=== PATIENT | male | born 1980 | race Hispanic/Latino ===

== ENCOUNTER 2017-02-17 11:56 | Emergency (ER) | payer SELFPAY | END 2017-02-17 12:53 | disposition home or self-care (01) | LOC: ERS 11:56 | DX: H60.92 Unspecified otitis externa, left ear (principal); I10 Essential (primary) hypertension; F17.210 Nicotine dependence, cigarettes, uncomplicated | CPT/HCPCS: 36416; 99283 ==

== ENCOUNTER 2019-09-03 21:41 | Emergency (ER) | payer SELFPAY ==
[2019-09-03] MEDS ORDERED: Lidocaine Viscous Sol 2% 15 ml UD Cup ONE (22:36)
[2019-09-03] MEDS ORDERED: Mag-Al 1200 mg/1200 mg/30 ML UDCUP ONE (22:36)
[2019-09-03] MEDS ORDERED: Ondansetron ODT 4 MG TAB ONE (22:45)
[2019-09-03 23:24] LABS: #Eosinphils 0.1 thou/uL (0.0-0.7); #Lymphocytes 3.4 thou/uL (1.20-3.40); #Monocytes 0.6 thou/uL (0.11-0.59); #Neutrophils 7.1 thou/uL (1.40-6.50); %Basophils 0.3 % (0.0-1.0); %Eosinophils 0.8 % (0.0-10.0); %Lymphocytes 30.5 % (21.0-51.0); %Monocytes 5.6 % (0.0-10.0); %Neutrophils 62.7 % (42.0-75.0); Hemoglobin 16.3 g/dL (14.0-18.0); Mean Corpuscular HGB CONC 33.8 g/dL (32.0-36.0); Mean Corpuscular Hemoglobin 31.5 pg (27.0-31.0); Mean Corpuscular Volume 93.1 fL (78.0-98.0); Mean Platelet Volume 10.3 fL (7.4-10.4); Platelet Count 197 thou/uL (130-400); RBC Distribution Width 12.3 % (11.5-14.5); Red Blood Cell (RBC) Count 5.17 mill/uL (4.70-6.10); White Blood Cell (WBC) Count 11.3 thou/uL (4.8-10.8)
[2019-09-03 23:25] LABS: ALT (SGPT) 131 U/L (8-55); AST (SGOT) 100 U/L (5-34); Albumin 4.2 g/dL (3.5-5.0); Alkaline Phosphatase 121 U/L (40-110); Anion Gap 20 mmol/L (10-20); BUN (Urea Nitrogen) 8 mg/dL (8.9-20.6); Bilirubin, Total 0.4 mg/dL (0.2-1.2); CK (CPK) 60 U/L (30-200); Calc. Creatinine Clearance 0 mL/min (70-130); Calcium 9.8 mg/dL (7.8-10.44); Carbon Dioxide 17 mmol/L (22-29); Chloride 106 mmol/L (98-107); Estimated GFR-MDRD Greater than 90; Glucose 207 mg/dL (70-105); Lipase 30 U/L (8-78); Potassium 3.9 mmol/L (3.5-5.1); Protein, Total 8.2 g/dL (6.0-8.3); Sodium 139 mmol/L (136-145)
--- NOTE | 2019-09-03 23:33 | RAD ---
CHEST ONE VIEW: 09/03/19 HISTORY: Diabetes and nausea. COMPARISON: None. FINDINGS: The lungs are clear. No pneumothorax or effusion. Cardiac silhouette and mediastinal contours are w ithin normal limits for the hypoinflated state. No acute osseous abnormality. IMPRESSION: Lung hypoinflation with bibasilar atelectasis. POS: HOME
[2019-09-04] MEDS ORDERED: cloNIDine 0.1 MG TAB ONE (00:05)
--- NOTE | 2019-09-04 08:06 | ULT ---
PRELIMINARY REPORT/[facility]/EMERGENCY AFTER HOURS PROCEDURE: PROCEDURE: Ultrasound Abdomen Limited. HISTORY: Abdomen pain. TECHNIQUE: Grayscale and color flow evaluation was performed of the RIGHT upper quadrant with image d ocumentation. COMPARISONS: None . TECHNICAL QUALITY: Satisfactory . FINDINGS: Liver: Normal echogenicity with no masses or intrahepatic biliary ductal dilatation . Liver not well visualized. Gallbladder: No evidence of gallstones or sludge with normal gallbladder wall at 2 mm . Limited visu alization of the gallbladder. Negative sonographic Dunn sign. Common bile duct: Normal size at 4 mm . Pancreas: Normal echogenicity with no masses . Not well visualized. RIGHT kidney: Normal echogenicity with no masses, cysts, calculus, or hydronephrosis . RIGHT kidney measures 12.3 cm in length. Ascites: None . Other: None . IMPRESSION: No significant abnormality identified. Limited visualization as described above. ELECTRONICALLY SIGNED BY: Souleymane Palafox MD Sep 04, 2019 12:49:54 AM CDT This report is intended for review by the ordering physician only, in accordance of law. If you recei ve this report in error, please call [facility] at [phone]. FINAL REPORT RIGHT UPPER QUADRANT ULTRASOUND: EMERGENCY AFTER HOURS EXAM DATE: 09-04-2019 TIME: 12:09 A.M. FINDINGS: Somewhat coarse echogencity. No overt gallstones or ductal dilatation. Exam is somewhat limited techn ically because of body habitus. No abscess or abnormal fluid collection. IMPRESSION: Somewhat limited exam. This report is in agreement with the preliminary report.
== END 2019-09-04 00:49 | disposition home or self-care (01) ==
LOC: ERS 21:41
DX: E11.65 Type 2 diabetes mellitus with hyperglycemia (principal); I10 Essential (primary) hypertension; R10.9 Unspecified abdominal pain; E66.01 Morbid (severe) obesity due to excess calories; R11.0 Nausea; F41.9 Anxiety disorder, unspecified; F17.210 Nicotine dependence, cigarettes, uncomplicated; Z79.84 Long term (current) use of oral hypoglycemic drugs
CPT/HCPCS: 36415; 71045; 76705; 80053; 82550; 83690; 84484; 85025; 93005; Q0162

== ENCOUNTER 2019-09-06 03:57 | Emergency (ER) | payer SELFPAY ==
[2019-09-06] MEDS ORDERED: Aspirin Chewable 81 MG TAB ONE (04:10)
[2019-09-06 04:35] LABS: #Eosinphils 0.1 thou/uL (0.0-0.7); #Lymphocytes 3.8 thou/uL (1.20-3.40); #Monocytes 0.7 thou/uL (0.11-0.59); #Neutrophils 6.2 thou/uL (1.40-6.50); %Basophils 0.3 % (0.0-1.0); %Monocytes 6.1 % (0.0-10.0); %Neutrophils 57.5 % (42.0-75.0); Hemoglobin 15.1 g/dL (14.0-18.0); Mean Corpuscular HGB CONC 33.6 g/dL (32.0-36.0); Mean Corpuscular Hemoglobin 31.1 pg (27.0-31.0); Mean Corpuscular Volume 92.6 fL (78.0-98.0); Platelet Count 179 thou/uL (130-400); RBC Distribution Width 12.1 % (11.5-14.5); Red Blood Cell (RBC) Count 4.86 mill/uL (4.70-6.10); White Blood Cell (WBC) Count 10.7 thou/uL (4.8-10.8)
[2019-09-06 04:54] LABS: ALT (SGPT) 102 U/L (8-55); AST (SGOT) 63 U/L (5-34); Albumin 4.1 g/dL (3.5-5.0); Alkaline Phosphatase 105 U/L (40-110); Anion Gap 15 mmol/L (10-20); BUN (Urea Nitrogen) 8 mg/dL (8.9-20.6); Bilirubin, Total 0.7 mg/dL (0.2-1.2); Calc. Creatinine Clearance 0 mL/min (70-130); Calcium 9.7 mg/dL (7.8-10.44); Carbon Dioxide 24 mmol/L (22-29); Chloride 103 mmol/L (98-107); Estimated GFR-MDRD Greater than 90; Globulin 3.5 g/dL (2.4-3.5); Glucose 131 mg/dL (70-105); Potassium 3.8 mmol/L (3.5-5.1); Protein, Total 7.6 g/dL (6.0-8.3); Sodium 138 mmol/L (136-145)
--- NOTE | 2019-09-06 07:37 | RAD ---
SINGLE VIEW CHEST: Date: 09/06/2019 COMPARISON: 09/03/2019. HISTORY: Sharp chest pain and shortness of breath earlier today. FINDINGS/IMPRESSION: Single view of the chest shows a normal sized cardiomediastinal silhouette. There is no evidence of c onsolidation, mass, or pleural effusion. The bones are unremarkable. IMPRESSION: No evidence of acute cardiopulmonary disease. POS: [facility]
== END 2019-09-06 06:40 | disposition home or self-care (01) ==
LOC: ERS 03:57
DX: R07.9 Chest pain, unspecified (principal); E66.9 Obesity, unspecified; E11.9 Type 2 diabetes mellitus without complications; I10 Essential (primary) hypertension; F41.9 Anxiety disorder, unspecified; F17.210 Nicotine dependence, cigarettes, uncomplicated; Z79.899 Other long term (current) drug therapy; Z79.84 Long term (current) use of oral hypoglycemic drugs
CPT/HCPCS: 36415; 71045; 80053; 84484; 85025; 93005